=== PATIENT | female | born 1990 ===

== ENCOUNTER 2023-05-04 09:25 | Emergency (ER) | payer OTHER, SELFPAY ==
[2023-05-04 09:33] VITALS: BP 104/50; PULSE 80; RESP 20; TEMP 36.9; O2SAT 98; BMI 17.0
[2023-05-04 10:26] LABS: Influenza A PCR NEGATIVE (Negative); Influenza B PCR NEGATIVE (Negative); Resp Syncy Virus RNA Qual PCR NEGATIVE (Negative); SARS COV2 PCR INHOUSE POSITIVE (Negative)
--- NOTE | 2023-05-04 10:40 | ED.URI ---
HPI - URI/Sore Throat General Chief Complaint: Upper Respiratory Symptoms Stated Complaint: Cough Vomiting Time Seen by Provider: 05/04/23 09:47 Source: patient Mode of arrival: ambulatory Limitations: no limitations History of Present Illness HPI Narrative: 33-year-old female no significant past medical history presents to the ED today with complaint of headache, sore throat, cough, fevers x2 days. Reports T-max of 102.3? at home. Has been taking Advil for this. Cough is productive of yellow-green sputum. Denies known sick contacts. Denies dizziness, vision changes, nasal congestion, shortness of breath, dyspnea, chest pain, nausea/vomiting, diarrhea, constipation. Related Data Previous Rx's Medication Instructions Recorded benzonatate 100 mg capsule 100 mg PO BID PRN cough #14 caps 05/04/23 Allergies Allergy/AdvReac Type Severity Reaction Status Date / Time No Known Allergies Allergy Unknown Unverified 02/05/20 17:23 Review of Systems Review of Systems: Constitutional: +fever, No chills, fatigue, night sweats, weight changes ENT/Mouth: No ear pain, hearing loss, nasal congestion, sinus pain, rhinorrhea, +sore throat Eyes: No eye pain, swelling, redness, vision changes, discharge Cardio: No chest pain, palpitations, [place], orthopnea, peripheral edema Pulm: No SOB, +cough, +sputum, No wheezing, dyspnea, hemoptysis GI: No nausea, vomiting, hematemesis, abdominal pain, diarrhea, constipation, hematochezia, melena : No irregular bleeding, dysuria, frequency, urgency, hesitancy, hematuria, flank pain, urinary flow changes, urinary incontinence or retention MSK: No back pain, neck pain, joint pain, myalgias Skin: No lesions, rashes Neuro: No weakness, numbness, paresthesias, LOC, dizziness, +headache All other systems reviewed and are negative. [facility] Past Medical History Attestation statement: The following information was validated with the patient. Source: old records reviewed and nursing notes reviewed Social History Social History Advance Directives: No Advance Directives Information Provided: No Physical Exam Vital Signs: Vital Signs: Last Vital Signs Temp 98.4 F 05/04/23 09:33 Pulse 80 05/04/23 09:33 Resp 20 05/04/23 09:33 BP 104/50 L 05/04/23 09:33 Pulse Ox 98 05/04/23 09:33 O2 Del Method Room Air 05/04/23 09:33 BMI result Body Mass Index 17.0 Vital signs stable, afebrile. Const: General: cooperative, comfortable, no acute distress, alert and awake Orientation/consciousness: patient oriented x3 Limitations: no limitations HEENT: Other: + posterior oropharynx without erythema or edema. Uvula midline. No tonsillar exudates. controlling secretions and speaking complete sentences. Head: Yes normal to inspection Ears: hearing grossly normal bilaterally, external ears normal, TM's normal bilaterally, EAC's normal, mastoids normal and no periauricular adenopathy General nose exam: Normal external nose present and No nasal discharge present Face and sinus: Yes normal facial exam and Yes sinuses nontender Eyes: General: appearance normal, both eyes and all related structures Conjunctivae: conjunctivae normal Sclerae: sclerae normal Pupils: Equal, round and reactive pupils present Neck: Neck: Yes normal visual inspection, Yes full ROM, Yes no lymphadenopathy and Yes no meningeal signs Resp: Effort & Inspection: normal respiratory effort, able to speak in complete sentences and no respiratory distress Auscultation: clear to auscultation bilaterally and no wheezes Cardio: Rate: regular rate Rhythm: regular rhythm Peripheral pulses: radial pulses present GI: Inspection: Yes normal to inspection Palpation (GI): Soft to palpation and nontender Skin: General skin exam: no rashes or lesions noted Neuro: General: patient oriented x3, gait normal, moves all extremities and no meningeal signs Cranial nerves: Yes Equal, round and reactive pupils present Extrem: General: Yes normal to inspection and Yes full ROM Course Reevaluation(s) Reevaluation #1: 1040-- serology positive for COVID. Negative for flu and RSV. Informed patient of serology results. Advised her to isolate for 5 days and wear mask for 5 days after that. Will send Viridiana Carranza her pharmacy for cough. Patient has remained stable throughout ED visit today, she is afebrile and not hyposix. Discussed strict return precautions. All questions answered at this time. Patient is agreeable with disposition and stable for discharge. Medical Decision Making Medical Decision Making MDM Narrative: 33-year-old female no significant past medical history presents to the ED today with complaint of headache, sore throat, cough, fevers x2 days. Vital signs stable, afebrile, not hypoxic. EACs and TMs WNL bilaterally. Posterior oropharynx without erythema or edema, uvula midline, no tonsillar exudates, controlling secretions and speaking complete sentences. Actively coughing. Lungs CTA bilaterally without wheezes. No rashes. Clinical concern for viral syndrome, bronchitis, headache. Unlikely pneumonia, strep throat, mono, [employer], retropharyngeal abscess, epiglottitis, PE. Plan at this time is serology and re-evaluation. Differential Diagnosis Differential Diagnoses: The differential diagnosis associated with the presentation includes As above. Admission/Observation Not indicated. Lab Data MDM Lab Attestation statement: I reviewed the patient's lab results. as above Labs: Lab Results 05/04/23 Range/Units 09:41 Influenza Type A (PCR) NEGATIVE (Negative) Influenza Type B (PCR) NEGATIVE (Negative) RSV RNA Qual (PCR) NEGATIVE (Negative) SARS-CoV-2 RNA (RT-PCR) POSITIVE A (Negative) External Record Review External record reviewed: Inpatient record Prescription Management I considered prescription management with: Pain Medication and Antiviral Critical Care Time Critical Care Time Critical Care Time: No Discharge Plan Discharge Clinical Impression: COVID Patient Disposition: Home, Self-Care Instructions: COVID-19 (Coronavirus Disease 2019) (ED) Additional Instructions: Today you tested positive for COVID-19.? Take Ibuprofen or Tylenol as needed for fevers or body aches.? Quarantine for 5 days and ensure you wear a mask. After 5 days you should wear a mask for 5 days after that.? Practice social distancing and good hand hygiene. Drink plenty of fluids. Tessalon Perles have been sent to your pharmacy. Take these as needed for cough. Follow-up with your primary care provider. Return to the emergency department with new or worsening symptoms. In case of emergency call 911 You can purchase a pulse oximeter from your local pharmacy or grocery store, and monitor your oxygen saturation if it goes below 94% you should return to the emergency department for further evaluation. Prescriptions: New benzonatate 100 mg capsule 100 mg PO BID PRN (Reason: cough) Qty: 14 0RF Referrals: Physician,Unknown J [Primary Care Provider] - Stand Alone Forms: Work/School Release Discharge Date/Time: 05/04/23 10:46
== END 2023-05-04 10:46 | disposition home or self-care (01) ==
PROVIDERS: Emergency Provider Emergency Medicine Emergency Medical Services
DX: U07.1 COVID-19 (principal); J02.9 Acute pharyngitis, unspecified; R05.9 Cough, unspecified; R11.2 Nausea with vomiting, unspecified; R50.9 Fever, unspecified; R51.9 Headache, unspecified
CPT/HCPCS: 0241U; 99282; 99283

== ENCOUNTER 2023-05-08 09:09 | Emergency (ER) | payer OTHER, SELFPAY ==
[2023-05-08 09:53] VITALS: BP 91/54; PULSE 61; RESP 15; TEMP 36; O2SAT 100; BMI 17.4
--- NOTE | 2023-05-08 10:07 | ED_ITS ---
HPI - General Adult General Chief complaint: General Medical Stated complaint: covid sympton fever cough Time Seen by Provider: 05/08/23 10:06 Source: patient Mode of arrival: ambulatory Limitations: no limitations History of Present Illness HPI narrative: Patient is a 33-year-old female presenting to the emergency department requesting medical clearance to return to work, stating that her job requires a negative COVID test to be able to return to work. Reports symptoms began on Sunday of last week, was seen here on Sunday and tested positive for COVID. States that her symptoms have since fully resolved. Denies fever, cough, shortness of breath. MD complaint: medical clearance Associated symptoms: denies other symptoms Treatments prior to arrival: none Related Data Previous Rx's Medication Instructions Recorded benzonatate 100 mg capsule 100 mg PO BID PRN cough #14 caps 05/04/23 Allergies Allergy/AdvReac Type Severity Reaction Status Date / Time No Known Allergies Allergy Unknown Unverified 02/05/20 17:23 Review of Systems Review of Systems: As per HPI. Yes all other systems are reviewed and are negative Constitutional: Constitutional: Reports as per HPI [facility] Social History Social History Advance Directives: No Advance Directives Information Provided: No Physical Exam ED Vital Signs: Vital Signs - 24 hr 05/08/23 09:53 Temperature 96.8 F Pulse Rate 61 Respiratory Rate 15 Blood Pressure 91/54 L Pulse Oximetry 100 Oxygen Delivery Method Room Air BMI result Body Mass Index 17.4 Vital signs have been reviewed and appear to be correct. Blood pressure low, patient states this is normal for her. Heart rate normal. Respiratory rate normal. Temperature normal. Oxygen saturation normal. Const General: cooperative, healthy appearing and no acute distress Orientation/consciousness: oriented to person, oriented to place, oriented to time and patient oriented x3 Limitations: no limitations HENMT Head: Yes normocephalic and Yes atraumatic Ears: external ears normal General nose exam: Normal external nose present Face and sinus: Yes face symmetric Mouth: oropharynx normal and moist mucous membranes Throat: Yes uvula midline Eyes Pupils: Equal, round and reactive pupils present Neck Neck: Yes normal visual inspection and Yes supple Resp Effort & Inspection: normal respiratory effort and able to speak in complete sentences Auscultation: clear to auscultation bilaterally Cardio Rate: regular rate Rhythm: regular rhythm Heart sounds: S1 normal heart sound present and S2 normal heart sound present GI Palpation (GI): Soft to palpation and nontender Auscultation: normoactive bowel sounds General: Yes no CVA tenderness Back/Spine/Pelvis Back: no CVA tenderness Skin General skin exam: elasticity normal and turgor normal Neuro General: oriented to person, oriented to place, oriented to time, patient oriented x3, moves all extremities, no focal motor deficits and CN's II-XI intact bilaterally Cranial nerves: Yes Equal, round and reactive pupils present Cognition (Neuro): normal cognition Extrem General: Yes full ROM, Yes no pedal edema and Yes no calf tenderness Psych Mental Status: mental status grossly normal Affect: normal affect Thought process: Normal thought process present Medical Decision Making Medical Decision Making MDM Narrative: Patient is a 33-year-old female presenting to the emergency department requesting medical clearance to return to work, stating that her job requires a negative COVID test to be able to return to work. On exam patient is awake, A+Ox3, VS WNL, afebrile, normal neurological exam without focal deficits, physical exam findings as above. Given reported symptoms and physical exam findings, initial differential includes Covid, medical clearance. Patient reswabbed, and found to be negative. Discussed with patient that she should continue to wear a mask for an additional 5 days while around others. Return pr ecautions discussed. Patient verbalized understanding of and agreement with plan. Differential Diagnosis Differential Diagnoses: The differential diagnosis associated with the presentation includes covid, medical clearance Lab Data MDM Lab Attestation statement: I reviewed the patient's lab results. Labs: Lab Results 05/08/23 Range/Units 10:27 COVID-19 ([place]) Negative (Negative) COVID-19 Clin Com See Note External Record Review External record reviewed: Inpatient record, Office record and Outpatient record Discharge Plan Discharge Clinical Impression: COVID Patient Disposition: Home, Self-Care Instructions: COVID-19 (Coronavirus Disease 2019) (ED) Additional Instructions: You were retested for Covid today for clearance to return to work. Your test results was negative. Please continue to wear mask when around others for the next 5 days. Follow-up with your primary care provider. Return to the emergency department if you develop shortness of breath, difficulty breathing, fever, or any other concerning symptoms. Prescriptions: No Action benzonatate 100 mg capsule 100 mg PO BID PRN (Reason: cough) Qty: 14 0RF Stand Alone Forms: Work/School Release
[2023-05-08 10:54] LABS: COVID-19 Test Negative (Negative); IDNOW Serial# BCCEAD1C
== END 2023-05-08 12:03 | disposition home or self-care (01) ==
PROVIDERS: Emergency Provider Emergency Medicine
DX: Z02.79 Encounter for issue of other medical certificate (principal); Z11.52 Encounter for screening for COVID-19; R05.9 Cough, unspecified
CPT/HCPCS: 87635; 99282; 99283

== ENCOUNTER 2023-05-28 15:35 | Emergency (ER) | payer OTHER, SELFPAY | END 2023-05-28 16:13 | disposition left against medical advice (07) | PROVIDERS: Emergency Provider Emergency Medicine | DX: H57.10 Ocular pain, unspecified eye (principal) ==

== ENCOUNTER 2023-06-03 10:26 | Emergency (ER) | payer OTHER, SELFPAY ==
[2023-06-03 11:00] VITALS: BP 97/47; PULSE 76; RESP 16; TEMP 37.1; O2SAT 96; BMI 18.2
--- NOTE | 2023-06-03 11:04 | ED.GENADULT ---
HPI - General Adult General Stated complaint: UTI Related Data Previous Rx's Medication Instructions Recorded benzonatate 100 mg capsule 100 mg PO BID PRN cough #14 caps 05/04/23 Allergies Allergy/AdvReac Type Severity Reaction Status Date / Time No Known Allergies Allergy Unknown Verified 06/03/23 10:59 Course Course Course Narrative: This is an RME: Additional HPI, ROS, PE not included below will be deferred to primary provider. This is a [id number]-female presenting to the emergency department with complaints of dysuria and urgency. She also reports that at times when she has urinary tract infection she also gets a BV infection would like to be tested for both. Plan: Urinalysis, upreg, further ER evaluation needed, likely needs pelvic exam Discharge Plan Discharge Prescriptions: No Action benzonatate 100 mg capsule 100 mg PO BID PRN (Reason: cough) Qty: 14 0RF
[2023-06-03 12:06] LABS: Appearance Urine Hazy; Glucose Urine UA 250 mg/dL (Negative); Leukocyte Esterase Urine Small (1+) (Negative); Nitrite Urine Positive (Negative); PH 6.5 (5.0-9.0); UMIC TRIGGER UACC YES; Urine Blood Trace (Negative); Urine Ketones Trace mg/dL (Negative); Urine Protein 300 (3+) mg/dL (Neg-Trace)
[2023-06-03 12:08] LABS: Color Urine Orange
[2023-06-03 12:09] LABS: UPreg QC Valid YES; Urine Pregnancy NEGATIVE (NEGATIVE)
[2023-06-03 12:37] LABS: Bacteria Urine 4+ (None Seen); Hyaline Casts Urine 0-2 /LPF (0-2); Squamous Epithelial Cell Urine 0-2 /HPF (0-2); UACC Culture Trigger YES
--- NOTE | 2023-06-03 12:42 | ED_ITS ---
HPI - General Adult General Chief complaint: Urogenital-Female Stated complaint: UTI Time Seen by Provider: 06/03/23 12:28 Source: patient Mode of arrival: ambulatory Limitations: no limitations History of Present Illness HPI narrative: 33-year-old female with history of recurrent UTIs, yeast and BV presents to the ED for dysuria and wants to be tested for BV and trich. Patient not concerned for STI patient states yesterday tested negative for chlamydia and gonorrhea. Patient denies any fever, chills, flank pain, nausea, vomiting, back pain, or abdominal pain. Related Data Previous Rx's Medication Instructions Recorded benzonatate 100 mg capsule 100 mg PO BID PRN cough #14 caps 05/04/23 cephalexin 250 mg capsule 250 mg PO Q6H 7 days #28 caps 06/03/23 fluconazole 100 mg tablet 150 mg (1.5 x 100 mg) PO DAILY 1 06/03/23 (Diflucan) day #1 tab metronidazole 0.75 % (37.5 mg/5 1 appful vaginal DAILY 5 days #70 06/03/23 gram) vaginal gel grams Allergies Allergy/AdvReac Type Severity Reaction Status Date / Time No Known Allergies Allergy Unknown Verified 06/03/23 10:59 Review of Systems Review of Systems: dysuria. Yes all other systems are reviewed and are negative [facility] Social History Social History Advance Directives: No Physical Exam ED Vital Signs: Vital Signs - 24 hr 06/03/23 11:00 Temperature 98.7 F Pulse Rate 76 Respiratory Rate 16 Blood Pressure 97/47 L Pulse Oximetry 96 Oxygen Delivery Method Room Air BMI result Body Mass Index 18.2 Const General: cooperative, healthy appearing, comfortable, no acute distress, well developed, alert, awake and Physically active Orientation/consciousness: oriented to person, oriented to place, oriented to time and patient oriented x3 HENMT Head: Yes normal to inspection, Yes No palpable skull fracture present, Yes normocephalic, Yes atraumatic and No abrasion Eyes General: appearance normal, both eyes and all related structures Neck Neck: Yes normal visual inspection, Yes full ROM, Yes no lymphadenopathy, Yes no meningeal signs, Yes trachea midline, Yes supple, No anterior neck swelling and No tender Chest Chest palpation & inspection: normal inspection of the chest and normal palpation of entire chest wall Resp Effort & Inspection: normal respiratory effort and able to speak in complete sentences Auscultation: clear to auscultation bilaterally Cardio Jugular venous distension: no JVD Heart sounds: S1 normal heart sound present and S2 normal heart sound present GI Inspection: Yes normal to inspection and No abdominal wall ecchymosis Palpation (GI): Soft to palpation, not firm, nontender, no guarding and not rigid General: Yes no CVA tenderness Back/Spine/Pelvis Back: no CVA tenderness and No back tenderness Skin General skin exam: no rashes or lesions noted, elasticity normal and turgor normal Neuro General: oriented to person, oriented to place, oriented to time, patient oriented x3, gait normal, tone normal, moves all extremities, Normal light touch and pain sensation, no meningeal signs, no focal motor deficits, CN's II-XI intact bilaterally and normal sensation to monofilament Extrem General: Yes normal to inspection, Yes full ROM and Yes capillary refill normal Psych Appearance: grossly normal, well kempt and not disheveled Medical Decision Making Medical Decision Making [facility] Narrative: 33-year-old female with recurrent UTIs BV and yeast presents to the ED for dysuria. Patient thinks she is having UTI would like to be tested for BV and trich. Patient denies any abdominal pain, nausea, vomiting, flank pain, fever or chills. Initial UA shows UTI. Positive glucose in urine will test POC. Will do pelvic exam with swabs. Patient not concerned for STI and does not want empiric treatment for chlamydia gonorrhea. 1:44pm: PELVIC EXAM NEGATIVE FOR VAGINAL LESIONS OR GREEN YELLOW BROWN VAGINAL DISCHARGE. NEGATIVE FOR CMT. SWAB SENT. PATIENT DISCHARGED WITH ANTIBIOTICS. PATIENT WILL BE TREATED EMPIRICALLY FOR BV AND YEAST. DISCHARGED ANTIBIOTICS Differential Diagnosis Differential Diagnoses: The differential diagnosis associated with the presentation includes ( UTI. VAGINITIS, ) Lab Data [facility] Lab Attestation statement: I reviewed the patient's lab results. Labs: Lab Results 06/03/23 06/03/23 06/03/23 Range/Units 11:57 14:07 14:25 POC Glucose 88 (60-115) mg/dL Urine Color [place] Urine Appearance Hazy Urine pH 6.5 (5.0-9.0) Ur Specific [place] 1.020 (1.005-1.025) Urine Protein 300 (3+) H (Neg-Trace) mg/dL Urine Glucose (UA) 250 H (Negative) mg/dL Urine Ketones Trace (Negative) mg/dL Urine Blood Trace (Negative) Urine Nitrite Positive H (Negative) Ur Leukocyte Esterase Small (1+) H (Negative) Urine RBC 3-5 H (0-2) /HPF Urine WBC 11-20 (0-5) /HPF Ur Squamous Epith Cells 0-2 (0-2) /HPF Urine Bacteria 4+ (None Seen) Hyaline Casts 0-2 (0-2) /LPF Urine Test NEGATIVE (NEGATIVE) Chlam trachomat DNA PCR NOT DETECTED (Not Detect.) N.gonorrhoeae DNA (PCR) NOT DETECTED (Not Detect.) External Record Review External record reviewed: Other ( PRIOR VISITS) Prescription Management I considered prescription management with: Antibiotic Discharge Plan Discharge Clinical Impression: Urinary tract infection, Vaginitis Patient Disposition: Home, Self-Care Instructions: Bacterial Vaginosis (ED), Urinary Tract Infection in Women (ED) Additional Instructions: RETURN TO THE ED IMMEDIATELY FOR ANY ABDOMINAL PAIN, NAUSEA, VOMITING, FLANK PAIN, FEVER, CHILLS, BLOODY URINE, VAGINAL LESIONS, VAGINAL DISCHARGE, OR ANY OTHER CONCERNING SYMPTOMS. PLEASE FOLLOW-UP WITH YOUR PRIMARY CARE PROVIDER AND OBGYN Prescriptions: New cephalexin 250 mg capsule 250 mg PO Q6H 7 Days Qty: 28 0RF fluconazole [Diflucan] 100 mg tablet 150 mg PO DAILY 1 Days Qty: 1 0RF metronidazole 0.75 % (37.5mg/5 gram) gel 1 appful vaginal DAILY 5 Days Qty: 70 0RF No Action benzonatate 100 mg capsule 100 mg PO BID PRN (Reason: cough) Qty: 14 0RF Interventions: ED Discharge Assessment Last Done: 06/03/23 14:50 Discharge Date/Time: 06/03/23 14:51 Print Language: Maldivian
[2023-06-03 14:30] LABS: Glucose, Whole Blood 88 mg/dL (60-115)
[2023-06-03 16:00] LABS: CT PCR NOT DETECTED (Not Detect.); NG PCR NOT DETECTED (Not Detect.)
[2023-06-04 11:58] LABS: BV Int Neg Control Negative (Negative); BV Int Pos Control Positive (Positive)
== END 2023-06-03 14:51 | disposition home or self-care (01) ==
PROVIDERS: Physician Assistant; Physician Assistant Medical; Emergency Provider Emergency Medicine
DX: N39.0 Urinary tract infection, site not specified (principal); N76.0 Acute vaginitis; R30.0 Dysuria; Z72.89 Other problems related to lifestyle
CPT/HCPCS: 0353U; 81001; 81003; 81025; 82947; 87086; 87088; 87186; 87480; 87510; 87660; 99283

== ENCOUNTER 2023-09-09 12:11 | Emergency (ER) | payer OTHER, SELFPAY ==
[2023-09-09 12:34] VITALS: BP 122/66; PULSE 90; RESP 19; TEMP 36.6; O2SAT 98; BMI 18.0
--- NOTE | 2023-09-09 12:38 | ED_ITS ---
HPI - General Adult General Chief complaint: General Medical Stated complaint: Itchiness all over/hemorrhoids Time Seen by Provider: 09/09/23 15:35 Source: patient and family Mode of arrival: ambulatory Limitations: no limitations History of Present Illness HPI narrative: 33 year old female with pmhx significant for constipation presents to the ED today for evaluation of rectal pruritus x2 weeks. She states that 2 weeks ago she spent approximately 3 hours on the toilet attempting to pass a bowel movement. Since this time, reports rectal pain and itching. She has been applying topical Preparation H ointment without relief. Endorses blood on wiping after passing BM 2 wks ago which has since resolved. she has been taking stool softeners and laxatives over the last 2 weeks which has helped her to pass bowel movements regularly. Denies diarrhea, constipation, melena, hematochezia, abdominal pain, nausea or vomiting. Additionally endorses intermittent diffuse body itching over the last few weeks. States she will occasionally notices hives to her skin when she begins to feel itchy. She has not noticed any other rashes. Denies new medications or antibiotics. Denies new detergents/soaps/lotions. Denies tick or insect bites. Denies known sick contacts. Denies known food/ environmental allergies. denies difficulty breathing or throat closing sensation. Related Data Previous Rx's ?Medication ?Instructions ?Recorded benzonatate 100 mg capsule 100 mg PO BID PRN cough #14 caps 05/04/23 cephalexin 250 mg capsule 250 mg PO Q6H 7 days #28 caps 06/03/23 fluconazole 100 mg tablet 150 mg (1.5 x 100 mg) PO DAILY 1 06/03/23 (Diflucan) day #1 tab metronidazole 0.75 % (37.5 mg/5 1 appful vaginal DAILY 5 days #70 06/03/23 gram) vaginal gel grams cetirizine 10 mg tablet (Zyrtec) 10 mg PO DAILY PRN allergy 09/09/23 symptoms #14 tabs diphenhydramine HCl 25 mg tablet 25 mg PO Q8H PRN itching #14 tabs 09/09/23 (Benadryl Allergy) hydrocortisone 2.5 % topical cream 1 appl [place] DAILY PRN itching #30 09/09/23 with perineal applicator grams prednisone 20 mg tablet 40 mg (2 x 20 mg) PO DAILY 5 days 09/09/23 #10 tabs Allergies Allergy/AdvReac Type Severity Reaction Status Date / Time acetaminophen [From Tylenol] Allergy Unknown Verified 09/09/23 12:36 Review of Systems 2 Review of Systems: Constitutional: No fever, chills, fatigue, night sweats, weight changes ENT/Mouth: No ear pain, hearing loss, nasal congestion, sinus pain, rhinorrhea, sore throat Eyes: No eye pain, swelling, redness, vision changes, discharge Cardio: No chest pain, palpitations, [place], orthopnea, peripheral edema Pulm: No SOB, cough, sputum, wheezing, dyspnea, hemoptysis GI: No nausea, vomiting, hematemesis, abdominal pain, diarrhea, constipation, hematochezia, melena : No irregular bleeding, dysuria, frequency, urgency, hesitancy, hematuria, flank pain, urinary flow changes, urinary incontinence or retention, +rectal pain/ itching MSK: No back pain, neck pain, joint pain, myalgias Skin: No lesions, rashes, +pruritus Neuro: No weakness, numbness, paresthesias, LOC, dizziness, headache Psych: No anxiety/panic, depression, SI/HI, AH/VH All other systems reviewed and are negative. [facility] Past Medical History Attestation statement: The following information was validated with the patient. Source: old records reviewed and nursing notes reviewed Social History Social History Advance Directives: No Advance Directives Information Provided: No Physical Exam ED Vital Signs: Vital Signs - 24 hr 09/09/23 12:34 09/09/23 16:25 Temperature 98 F 98 F Pulse Rate 90 90 Respiratory Rate 19 19 Blood Pressure 122/66 122/66 Pulse Oximetry 98 98 Oxygen Delivery Method Room Air Room Air BMI result Body Mass Index 18.0 Const Orientation/consciousness: patient oriented x3 HENMT Head: Yes normal to inspection, Yes No palpable skull fracture present, Yes normocephalic and Yes atraumatic Mouth: Normal oral and palatal mucosa present Throat: Yes posterior oropharynx normal Eyes General: appearance normal, both eyes and all related structures Neck Neck: Yes normal visual inspection, Yes full ROM, Yes no lymphadenopathy and Yes no meningeal signs Chest Chest palpation & inspection: normal inspection of the chest Resp Effort & Inspection: normal respiratory effort, able to speak in complete sentences and no stridor Auscultation: clear to auscultation bilaterally Cardio Rate: regular rate Rhythm: regular rhythm GI Other: + abdomen soft, ND/NT, no rebound tenderness or guarding. normoactive bs x4. Rectal exam performed with Lisa head start teacher present in room to tailor garment fitter. + there are no perianal lesions, masses. Normal sphincter tone. there is a palpable internal hemorrhoid noted to posterior aspect of anus. no active bleeding. ttp. no palpable stool within rectal vault. General: Yes no CVA tenderness Back/Spine/Pelvis Back: no CVA tenderness Skin Other: + skin warm, dry, intact. no rashes/ hives noted. no lesions noted to mucous membranes, webbed spaces, or palms/soles. no sloughing of skin. no dermatomal pattern. no target lesions or insect/ tick bites. Neuro General: patient oriented x3, gait normal and no meningeal signs Extrem General: Yes normal to inspection Course Course Course Narrative: RME: 33 year year old female presents to ED for generalized pruritus without any obvious rash. Patient states only dennis wells after she itches. Patient's secondary complaint is rectum itchiness. Reevaluation(s) Reevaluation #1: 1620-- cbc without leukocytosis or left shift. no anemia. h&h stable. eosinophills wnl. chemistry without acute electrolyte abnormality requiring intervention. normal renal and liver function. Physical exam consistent with internal hemorrhoid. will send hydrocortisone cream to pharmacy for symptomatic relief. advised to follow up with GI regarding further management. No physical evidence of acute allergic reaction or anaphylaxis. she is currently asymptomatic. patient received pepcid, benadryl, and decadron in ED. will send her home with zyrtec, benadryl and prednisone. advised to follow up with outboard motor inspector or nuclear reactor engineer. referrals provided. Patient has remained stable throughout ED visit today. Discussed worrisome signs and symptoms and when to return to the ED. All questions answered at this time. Patient is agreeable with disposition and stable for discharge. Medications Administered Discontinued Medications Generic Name Dose Route Start Last Admin Trade Name Freq PRN Reason Stop Dose Admin Dexamethasone Sodium Phosphate 10 mg 09/09/23 15:53 09/09/23 16:10 Dexamethasone Sod Phosphate 10 Mg/Ml Vial IVPUSH 09/09/23 15:54 10 mg ONCE ONE Administration Diphenhydramine HCl 50 mg 09/09/23 15:53 09/09/23 16:10 Diphenhydramine Hcl 25 Mg Capsule PO 09/09/23 15:54 50 mg ONCE ONE Administration Famotidine 20 mg 09/09/23 15:53 09/09/23 16:10 Famotidine 20 Mg Tablet PO 09/09/23 15:54 20 mg ONCE ONE Administration Medical Decision Making Medical Decision Making [facility] Narrative: 33 year old female with pmhx significant for constipation presents to the ED today for evaluation of rectal pruritus x2 weeks. vital signs are stable. she is nontoxic appearing and in no acute distress. skin warm, dry, intact. no rashes/ hives noted. no lesions noted to mucous membranes, webbed spaces, or palms/soles. no sloughing of skin. no target lesions or insect/ tick bites. no dermatomal pattern. Lungs are cta b/l. Airway patent. On BIJU, there are no perianal lesions, masses. Normal sphincter tone. there is a palpable internal hemorrhoid noted to posterior aspect of anus. no active bleeding. ttp. no palpable stool within rectal vault. abd soft, nd/nt no rebound or guarding. Differential diagnosis includes allergic reaction, contact dermatitis, seasonal allergies, external hemorrhoid, internal hemorrhoid. Unlikely scabies, insect bite, lyme, tick bourne disease, anaphylaxsis, sjs/ ten, medication reaction, GI bleed, fissure. Labs obtained prior to my assumption of care. Plan for medication and discharge. Differential Diagnosis Differential Diagnoses: The differential diagnosis associated with the presentation includes as above. Admission/Observation not indicated. Lab Data [facility] Lab Attestation statement: I reviewed the patient's lab results. as above. 09/09/23 14:23 09/09/23 14:23 Labs: Lab Results 09/09/23 Range/Units 14:23 WBC 5.0 (4.8-10.8) X10*3/uL RBC 4.23 (4.20-5.50) X10*6/uL Hgb 13.0 (12.0-16.0) g/dl Hct 39.3 (37.0-47.0) % MCV 92.9 (80.0-98.0) fL MCH 30.7 (27.0-33.0) pg MCHC 33.1 (31.0-35.0) g/dl RDW 13.2 (11.0-16.0) % Plt Count 214 (160-400) X10*3/uL MPV 10.4 (9.4-12.3) fL Immature Gran % (Auto) 0.2 (0.0-0.4) % Neut % (Auto) 55.0 (45-73) % Lymph % (Auto) 31.9 (20-40) % [place] % (Auto) 10.3 (2-11) % Eos % (Auto) 1.8 (0-4) % Baso % (Auto) 0.8 (0-2) % Lymph # (Auto) 1.6 (1.2-4.9) X10*3/uL [place] # (Auto) 0.5 (0.1-1.2) X10*3/uL Eos # (Auto) 0.1 (0.0-0.4) X10*3/uL Baso # (Auto) 0.0 (0.0-0.2) X10*3/uL Abs Immat Gran (auto) 0.01 (0.00-0.03) X10*3/uL Absolute Neuts (auto) 2.8 (2.0-8.3) x10*3/uL Absolute Nucleated RBC 0.000 (0.0-0.012) X10*3/uL Nucleated RBC % (auto) 0.0 (0.0-0.2) /100WBC Sodium 137 (135-145) mmol/L Potassium 4.2 (3.3-5.1) mmol/L Chloride 106 (96-108) mmol/L Carbon Dioxide 25 (22-29) mmol/L Anion Gap 10 L (12-20) BUN 8 L (9-16) mg/dL Creatinine 0.71 (0.5-1.4) mg/dL Estim Creat Clear Calc 91.0 Estimated GFR > 60 Random Glucose 84 (60-115) mg/dL Calcium 9.2 (8.4-10.2) mg/dL Total Bilirubin 0.4 (0.0-1.0) mg/dL AST 13 (5-31) U/L ALT 7 (0-31) U/L Alkaline Phosphatase 45 (39-117) U/L Total Protein 7.5 (6.5-8.0) g/dL Albumin 4.0 (3.5-5.0) g/dL Lipase 22 (8-78) U/L Independent Historian Clinical information obtained from an independent historian. History obtained from or confirmed by: Spouse Prescription Management I considered prescription management with: Other (benadryl, zyrtec, prednisone, lido ointment) Social Determinants Patient?s care significantly limited by Social Determinants of Health including: Other Social Determinant of Health Discharge Plan Discharge Clinical Impression: Internal hemorrhage, Anal pruritus Patient Disposition: Home, Self-Care Instructions: Hemorrhoids (ED), Sitz Bath (DC), Hemorrhoidectomy (DC) Additional Instructions: Avoid constipation/straining Continue laxatives and stool softeners for constipation. Hydrocortizone ointment has been sent to your pharmacy. Apply this up to twice daily for anal itching. Do not use this for more than one week as this can cause the skin to thin. Utilize sitz baths to help with discomfort. See instructions attached to this paper. Follow-up with electric fork operator if symptoms do not improve. A referral has been provided to you. Return with new or worsening symptoms. In addition, medications have been sent to your pharmacy for overall body itching. Prednisone is a steroid that has been sent to your pharmacy. Take this as directed over the next 5 days. Take this in conjunction with Benadryl 25 mg every 8 hours for itching. Take these in conjunction with Zyrtec 10 mg daily. You have been provided with a referral to an outboard motor inspector along with a nuclear reactor engineer. You may call them to establish care. They will not call you. Return with new or worsening symptoms. Prescriptions: New prednisone 20 mg tablet 40 mg PO DAILY 5 Days Qty: 10 0RF cetirizine [Zyrtec] 10 mg tablet 10 mg PO DAILY PRN (Reason: allergy symptoms) Qty: 14 0RF diphenhydramine HCl [Benadryl Allergy] 25 mg tablet 25 mg PO Q8H PRN (Reason: itching) Qty: 14 0RF Rx Instructions: may repeat once in 30-60 minutes if not effective hydrocortisone 2.5 % cream with perineal applicator 1 appl [place] DAILY PRN (Reason: itching) Qty: 30 0RF No Action benzonatate 100 mg capsule 100 mg PO BID PRN (Reason: cough) Qty: 14 0RF cephalexin 250 mg capsule 250 mg PO Q6H 7 Days Qty: 28 0RF fluconazole [Diflucan] 100 mg tablet 150 mg PO DAILY 1 Days Qty: 1 0RF metronidazole 0.75 % (37.5mg/5 gram) gel 1 appful vaginal DAILY 5 Days Qty: 70 0RF Referrals: [facility] [Provider Group] Ian Tinsley MD [Physician] - Bibi Davis PA-C [Physician Validation Specialist] - Interventions: ED Discharge Assessment Last Done: 09/09/23 16:25 Discharge Date/Time: 09/09/23 16:25 Print Language: [place]
[2023-09-09 14:26] LABS: MANUAL DIFF FLAG NO
[2023-09-09 14:27] LABS: Basophils Percent Auto 0.8 % (0-2); Eosinophils Absolute Auto 0.1 X10*3/uL (0.0-0.4); Eosinophils Percent Auto 1.8 % (0-4); Hematocrit 39.3 % (37.0-47.0); Imm Gran Abs Auto 0.01 X10*3/uL (0.00-0.03); Imm Gran Pct Auto 0.2 % (0.0-0.4); Lymphocytes Absolute Auto 1.6 X10*3/uL (1.2-4.9); Lymphocytes Percent Auto 31.9 % (20-40); Mean Corpuscular HGB Conc 33.1 g/dl (31.0-35.0); Mean Corpuscular Hemoglobin 30.7 pg (27.0-33.0); Mean Corpuscular Volume 92.9 fL (80.0-98.0); Mean Platelet Volume 10.4 fL (9.4-12.3); Monocytes Absolute Auto 0.5 X10*3/uL (0.1-1.2); Monocytes Percent Auto 10.3 % (2-11); Neutrophils Absolute Auto 2.8 x10*3/uL (2.0-8.3); Platelet Count 214 X10*3/uL (160-400); Red Blood Count 4.23 X10*6/uL (4.20-5.50); Red Cell Distribution Width 13.2 % (11.0-16.0)
[2023-09-09 15:04] LABS: Alanine Aminotransferase 7 U/L (0-31); Alkaline Phosphatase 45 U/L (39-117); Anion Gap 10 (12-20); Aspartate Amino Transferase 13 U/L (5-31); Bilirubin Total 0.4 mg/dL (0.0-1.0); Blood Urea Nitrogen 8 mg/dL (9-16); Calcium 9.2 mg/dL (8.4-10.2); Carbon Dioxide 25 mmol/L (22-29); Chloride 106 mmol/L (96-108); Estimated Glomerular Filt Rate > 60; Glucose Random 84 mg/dL (60-115); Lipase 22 U/L (8-78); Potassium 4.2 mmol/L (3.3-5.1); Sodium 137 mmol/L (135-145); Total Protein 7.5 g/dL (6.5-8.0)
[2023-09-09] MEDS: dexAMETHasone sod phosphate 10 MG/ML VIAL IVPUSH (16:10)
[2023-09-09] MEDS: Famotidine 20 MG TABLET PO (16:10)
[2023-09-09] MEDS: diphenhydrAMINE HCL 25 MG CAPSULE 50 MG PO (16:10)
[2023-09-09 16:25] VITALS: BP 122/66; PULSE 90; RESP 19; TEMP 36.6; O2SAT 98
== END 2023-09-09 16:25 | disposition home or self-care (01) ==
PROVIDERS: Physician Assistant; Emergency Provider Emergency Medicine
DX: K64.8 Other hemorrhoids (principal); L29.0 Pruritus ani; Z79.899 Other long term (current) drug therapy
CPT/HCPCS: 36415; 80053; 83690; 85025; 99282; 99283; J1100

== ENCOUNTER 2024-03-23 10:28 | Emergency (ER) | payer OTHER, SELFPAY ==
--- NOTE | ~2024-03-23 | CT_ITS ---
EXAMINATION: CT ABDOMEN AND PELVIS WITH CONTRAST CLINICAL INFORMATION: RLQ pain R/O appendicitis COMPARISON: None available. TECHNIQUE: Multidetector volumetric images were obtained from the superior aspect of the liver through the pubic symphysis following administration 85 mL of Omnipaque 350 intravenous contrast. Sagittal and coronal reformatted images were obtained on the technologist's workstation. Oral contrast: No This CT examination was performed using dose optimization techniques as appropriate, variously including the following: *Automated exposure control *Adjustment of mA and/or kV according to patient size (this includes techniques or standardized protocols for targeted exams where dose is matched to indication/reason for exam; i.e. extremities or head) *Use of iterative reconstruction technique DLP: 355 mGy-cm FINDINGS: LUNG BASES: The visualized lung bases are unremarkable. LIVER, GALLBLADDER, AND BILIARY TREE: The liver is normal in size, shape, and attenuation. No focal hepatic lesion or biliary ductal dilatation is present. The gallbladder is unremarkable with no evidence of radiopaque gallstones, gallbladder wall thickening, or obvious pericholecystic inflammatory changes. PANCREAS: Unremarkable. SPLEEN: Unremarkable. ADRENAL GLANDS: Unremarkable. KIDNEYS AND URETERS: The kidneys are normal in size, shape, and attenuation. No hydronephrosis, hydroureter, or calculi seen. No perinephric stranding. BLADDER: Circumferential wall thickening. GASTROINTESTINAL TRACT: The small and large bowel are unremarkable. The appendix is unremarkable. ABDOMINAL WALL: No significant hernia is appreciated. LYMPH NODES: Normal. VASCULAR: Unremarkable. PELVIC VISCERA: Heterogeneous uterus with hypodensity and stranding around the proximal uterus and cervix. The fundus appears hyperdense and heterogeneous. There is a 7 mm linear hypodensity in the anterior uterine wall that may represent a prior scar. OSSEOUS STRUCTURES: Unremarkable. CT/CT abdomen pelvis w IV con IMPRESSION: 1. Heterogeneous uterus with hypodensity and stranding around the proximal uterus and cervix. The fundus appears hyperdense and heterogeneous. Findings are concerning for uterine infection. Recommend further evaluation with pelvic ultrasound. 2. 7 mm linear hypodensity in the anterior uterine wall that is contiguous with the endometrial lining may represent a prior scar. Cannot exclude dehiscence. 3. Circumferential wall thickening of the urinary bladder, which may be due to underdistention or cystitis. Recommend correlation with urinalysis. Fleischner guidelines were followed. Electronically signed by: Tamie Ng MD 03/23/2024 02:57 PM [facility]
[2024-03-23 10:33] VITALS: BP 96/64; PULSE 75; RESP 16; TEMP 36.8; O2SAT 98; BMI 19.1
[2024-03-23 11:01] LABS: MANUAL DIFF FLAG NO
[2024-03-23 11:03] LABS: Basophils Percent Auto 0.4 % (0-2); Eosinophils Absolute Auto 0.1 X10*3/uL (0.0-0.4); Eosinophils Percent Auto 0.7 % (0-4); Hematocrit 39.2 % (37.0-47.0); Hemoglobin 13.1 g/dl (12.0-16.0); Imm Gran Abs Auto 0.01 X10*3/uL (0.00-0.03); Imm Gran Pct Auto 0.1 % (0.0-0.4); Lymphocytes Absolute Auto 1.3 X10*3/uL (1.2-4.9); Lymphocytes Percent Auto 19.8 % (20-40); Mean Corpuscular HGB Conc 33.4 g/dl (31.0-35.0); Mean Corpuscular Hemoglobin 31.3 pg (27.0-33.0); Mean Corpuscular Volume 93.8 fL (80.0-98.0); Mean Platelet Volume 10.1 fL (9.4-12.3); Monocytes Absolute Auto 0.5 X10*3/uL (0.1-1.2); Monocytes Percent Auto 7.3 % (2-11); Neutrophils Absolute Auto 4.8 x10*3/uL (2.0-8.3); Neutrophils Percent Auto 71.7 % (45-73); Platelet Count 246 X10*3/uL (160-400); Red Blood Count 4.18 X10*6/uL (4.20-5.50); White Blood Count 6.7 X10*3/uL (4.8-10.8)
[2024-03-23 11:04] LABS: Appearance Urine Turbid; Color Urine Yellow; Glucose Urine UA Negative (Negative); Leukocyte Esterase Urine Negative (Negative); Nitrite Urine Negative (Negative); Specific Gravity - Urine 1.015 (1.005-1.025); Urine Blood Negative (Negative); Urine Ketones Negative (Negative); Urine Protein Negative (Neg-Trace)
[2024-03-23 11:05] LABS: UPreg QC Valid YES; Urine Pregnancy NEGATIVE (NEGATIVE)
[2024-03-23 11:38] LABS: Anion Gap 11 (12-20); Blood Urea Nitrogen 7 mg/dL (9-16); Calcium 9.7 mg/dL (8.4-10.2); Carbon Dioxide 28 mmol/L (22-29); Chloride 104 mmol/L (96-108); Creatinine Clr Calc Pharmacy 86.8; Estimated Glomerular Filt Rate > 60; Glucose Random 73 mg/dL (60-115); Potassium 3.8 mmol/L (3.3-5.1); Sodium 139 mmol/L (135-145)
--- NOTE | 2024-03-23 11:39 | PC.NURSE ---
patient states pain is still there but dull and LLQ to back. Patient reports tubal ligation in 2017 after daughter was born. still sexually active and periods are abnormal . most recent last week just ending few days ago. patient denies any nausea, vomiting, diarrhea, fevers or chills. Patient aaxo3 speaking clear full sentences. patient reports abdominal pain worse upon palpation of LLQ. denies burning, itching, or pain with urination. patient reports severe pain right pelvic area when she sneezed this morning.
--- NOTE | 2024-03-23 12:04 | ED_ITS ---
HPI - Abdominal Pain General Chief Complaint: Abdominal Pain Stated Complaint: Pain pelvic, lower back Time Seen by Provider: 03/23/24 12:03 Source: patient Mode of arrival: ambulatory Limitations: no limitations History of Present Illness ED Provider: Dr. Benson Dunne HPI narrative: 33-year-old female who presents emergency department for evaluation of lower abdominal/pelvic pain x2 days. The patient states that the pain is more on her right lower quadrant area than her left. The pain came on gradually. The pain has been intermittent and a dull pain which is 5/10 at its worst. This morning the patient's pain became more severe so she came to the emergency department. She also states that today she noticed a vaginal discharge which she states has thick and gooey. The patient states that her last menstrual period was 03/09/2024 and lasted for 7-8 days. This is a 1st episode of this type of pain. The patient states she has had a change in her menses with increased vaginal bleeding in the beginning of her cycle. She did have a pelvic ultrasound which she was told his abnormal but she does the abnormal finding and she was scheduled to follow-up with a another provider. Related Data Previous Rx's ?Medication ?Instructions ?Recorded benzonatate 100 mg capsule 100 mg PO BID PRN cough #14 caps 05/04/23 cephalexin 250 mg capsule 250 mg PO Q6H 7 days #28 caps 06/03/23 fluconazole 100 mg tablet 150 mg (1.5 x 100 mg) PO DAILY 1 06/03/23 (Diflucan) day #1 tab metronidazole 0.75 % (37.5 mg/5 1 appful vaginal DAILY 5 days #70 06/03/23 gram) vaginal gel grams cetirizine 10 mg tablet (Zyrtec) 10 mg PO DAILY PRN allergy 09/09/23 symptoms #14 tabs diphenhydramine HCl 25 mg tablet 25 mg PO Q8H PRN itching #14 tabs 09/09/23 (Benadryl Allergy) hydrocortisone 2.5 % topical cream 1 appl [place] DAILY PRN itching #30 09/09/23 with perineal applicator grams prednisone 20 mg tablet 40 mg (2 x 20 mg) PO DAILY 5 days 09/09/23 #10 tabs doxycycline hyclate 100 mg tablet 100 mg PO Q12H 14 days #28 tabs 03/23/24 metronidazole 500 mg tablet 500 mg PO BID 10 days #20 tabs 03/23/24 ondansetron 4 mg disintegrating 4 mg PO Q6-8H PRN nausea and 03/23/24 tablet vomiting #14 tabs Allergies Allergy/AdvReac Type Severity Reaction Status Date / Time acetaminophen [From Tylenol] Allergy Unknown Verified 03/23/24 10:36 Review of Systems Review of Systems Yes all other systems are reviewed and are negative [facility] Past Medical History [facility] Narrative: Social history: She denies tobacco, alcohol and drug use Social History Social History Advance Directives: No Advance Directives Information Provided: Yes Do you have a plan to hurt others: No Plan Physical Exam ED Vital Signs: Vital Signs - 24 hr 03/23/24 10:33 03/23/24 13:36 Temperature 98.3 F 97.7 F Pulse Rate 75 76 Respiratory Rate 16 18 Blood Pressure 96/64 111/79 Pulse Oximetry 98 100 Oxygen Delivery Method Room Air Room Air BMI result Body Mass Index 19.1 Medical Decision Making Lab Data 03/23/24 10:57 03/23/24 10:57 Labs: Lab Results 03/23/24 03/23/24 Range/Units 10:54 10:57 WBC 6.7 (4.8-10.8) X10*3/uL RBC 4.18 L (4.20-5.50) X10*6/uL Hgb 13.1 (12.0-16.0) g/dl Hct 39.2 (37.0-47.0) % MCV 93.8 (80.0-98.0) fL MCH 31.3 (27.0-33.0) pg MCHC 33.4 (31.0-35.0) g/dl RDW 13.0 (11.0-16.0) % Plt Count 246 (160-400) X10*3/uL MPV 10.1 (9.4-12.3) fL Immature Gran % (Auto) 0.1 (0.0-0.4) % Neut % (Auto) 71.7 (45-73) % Lymph % (Auto) 19.8 L (20-40) % [place] % (Auto) 7.3 (2-11) % Eos % (Auto) 0.7 (0-4) % Baso % (Auto) 0.4 (0-2) % Lymph # (Auto) 1.3 (1.2-4.9) X10*3/uL [place] # (Auto) 0.5 (0.1-1.2) X10*3/uL Eos # (Auto) 0.1 (0.0-0.4) X10*3/uL Baso # (Auto) 0.0 (0.0-0.2) X10*3/uL Abs Immat Gran (auto) 0.01 (0.00-0.03) X10*3/uL Absolute Neuts (auto) 4.8 (2.0-8.3) x10*3/uL Absolute Nucleated RBC 0.000 (0.0-0.012) X10*3/uL Nucleated RBC % (auto) 0.0 (0.0-0.2) /100WBC Sodium 139 (135-145) mmol/L Potassium 3.8 (3.3-5.1) mmol/L Chloride 104 (96-108) mmol/L Carbon Dioxide 28 (22-29) mmol/L Anion Gap 11 L (12-20) BUN 7 L (9-16) mg/dL Creatinine 0.79 (0.5-1.4) mg/dL Estim Creat Clear Calc 86.8 Estimated GFR > 60 Random Glucose 73 (60-115) mg/dL Calcium 9.7 (8.4-10.2) mg/dL Urine Color Yellow Urine Appearance Turbid Urine pH 8.0 (5.0-9.0) Ur Specific [place] 1.015 (1.005-1.025) Urine Protein Negative (Neg-Trace) mg/dL Urine Glucose (UA) Negative (Negative) mg/dL Urine Ketones Negative (Negative) mg/dL Urine Blood Negative (Negative) Urine Nitrite Negative (Negative) Ur Leukocyte Esterase Negative (Negative) Urine Test NEGATIVE (NEGATIVE) Radiology Impression Discussion of test interpretation with radiology: I have reviewed the radiologist's reading. Radiologist Impression: CT abdomen pelvis w IV con IMPRESSION: 1. Heterogeneous uterus with hypodensity and stranding around the proximal uterus and cervix. The fundus appears hyperdense and heterogeneous. Findings are concerning for uterine infection. Recommend further evaluation with pelvic ultrasound. 2. 7 mm linear hypodensity in the anterior uterine wall that is contiguous with the endometrial lining may represent a prior scar. Cannot exclude dehiscence. 3. Circumferential wall thickening of the urinary bladder, which may be due to underdistention or cystitis. Recommend correlation with urinalysis. Fleischner guidelines were followed. Electronically signed by: Tamie Ng MD 03/23/2024 02:57 PM [facility] Medications Administered Discontinued Medications Generic Name Dose Route Start Last Admin Trade Name Freq PRN Reason Stop Dose Admin Iohexol 100 ml 03/23/24 14:18 03/23/24 14:19 Iohexol 350 Mg/Ml 100 Ml Infus..Btl IV 03/23/24 14:19 85 ml ONCE ONE Administration Ketorolac Tromethamine 15 mg 03/23/24 12:51 03/23/24 13:20 Ketorolac Tromethamine 15 Mg/Ml Vial IVPUSH 03/23/24 12:52 15 mg ONCE STA Administration Ondansetron HCl 4 mg 03/23/24 12:51 03/23/24 13:21 Ondansetron Hcl 4 Mg/2 Ml Vial IVPUSH 03/23/24 12:52 4 mg ONCE ONE Administration Discharge Plan Discharge Clinical Impression: Acute PID (pelvic inflammatory disease) Patient Disposition: Home, Self-Care Additional Instructions: Your blood work was unremarkable Your pelvic exam did reveal tenderness with palpation of your uterus The CT scan of your abdomen pelvis with IV contrast is consistent with an infection of your uterus. Your presentation and physical findings are consistent with pelvic inflammatory disease (PID). Approximately 30% of the time, pelvic inflammatory disease is caused by sexually transmitted diseases such as Trichomonas, gonorrhea or chlamydia. Approximately 70% of the time, pelvic inflammatory disease is caused by abnormal bacteria (anaerobic bacteria) in your vagina that can cause an infection ? Medications You received ceftriaxone 500 mg intramuscularly here in the emergency department Take doxycycline 100 mg, 1 pill twice a day for 14 days. Take metronidazole 500 mg, 1 pill twice a day for 14 days. These 3 antibiotics treat sexually transmitted diseases such as gonorrhea, chlamydia and Trichomonas as well as anaerobic bacteria that can cause pelvic inflammatory disease. Take ibuprofen 400 mg pills, 1 pills every 6 hours as needed for pain. For pain not relieved by ibuprofen take morphine 15 mg pills, 1 pill every 6 hours as needed for pain. This medication will make you sleepy, do not drive or work while taking this medication. Morphine is a narcotic medication and can be addicting. If you are concerned about addiction you can ask the pharmacist for less pills or do not get this prescription filled. Take Zofran ODT 4 mg pills, 1 pill dissolved in your mouth every 8 hours as needed for nausea and vomiting. Follow-Up Follow-up with your gynecology in ?10-14 days. Pending laboratory tests: The doctor that follows up ?will need to review the following results with you: Bacterial vaginosis testing Gonorrhea and chlamydia (cervical swab) Trichomonas testing You can also check these results on the patient portal. Return precautions: Please return to the emergency department if your symptoms get worse if your pain does not go away in 24-48 hours or if you develop any symptoms that are concerning to you. Prescriptions: New metronidazole 500 mg tablet 500 mg PO BID 10 Days Qty: 20 0RF ondansetron 4 mg tablet,disintegrating 4 mg PO Q6-8H PRN (Reason: nausea and vomiting) Qty: 14 0RF doxycycline hyclate 100 mg tablet 100 mg PO Q12H 14 Days Qty: 28 0RF No Action benzonatate 100 mg capsule 100 mg PO BID PRN (Reason: cough) Qty: 14 0RF cephalexin 250 mg capsule 250 mg PO Q6H 7 Days Qty: 28 0RF fluconazole [Diflucan] 100 mg tablet 150 mg PO DAILY 1 Days Qty: 1 0RF metronidazole 0.75 % (37.5mg/5 gram) gel 1 appful vaginal DAILY 5 Days Qty: 70 0RF prednisone 20 mg tablet 40 mg PO DAILY 5 Days Qty: 10 0RF cetirizine [Zyrtec] 10 mg tablet 10 mg PO DAILY PRN (Reason: allergy symptoms) Qty: 14 0RF diphenhydramine HCl [Benadryl Allergy] 25 mg tablet 25 mg PO Q8H PRN (Reason: itching) Qty: 14 0RF Rx Instructions: may repeat once in 30-60 minutes if not effective hydrocortisone 2.5 % cream with perineal applicator 1 appl [place] DAILY PRN (Reason: itching) Qty: 30 0RF Print Language: Ma[place]
[2024-03-23] MEDS: Ketorolac Tromethamine 15 MG/ML VIAL IVPUSH (13:20)
[2024-03-23] MEDS: ondansetron HCL 4 MG/2 ML VIAL IVPUSH (13:21)
[2024-03-23 13:36] VITALS: BP 111/79; PULSE 76; RESP 18; TEMP 36.5; O2SAT 100
[2024-03-23] MEDS: iohexoL 350 MG/ML 100 ML INFUS..BTL IV (14:19)
[2024-03-23 15:17] LABS: Bacterial Vaginosis PCR NEGATIVE (Negative); Candida Group PCR NOT DETECTED (Not Detect); Candida glab krusei PCR NOT DETECTED (Not Detect); Trichomonas vaginalis PCR NOT DETECTED (Not Detect)
[2024-03-23] MEDS: Doxycycline Monohydrate 100 MG CAPSULE PO (15:36)
[2024-03-23] MEDS: metroNIDAZOLE 500 MG TABLET PO (15:36)
[2024-03-23] MEDS: cefTRIAXone sodium 500 MG, Lidocaine HCl 1 % MPF 1 ML IM (15:36)
[2024-03-23 15:49] LABS: CT PCR NOT DETECTED (Not Detect.); NG PCR NOT DETECTED (Not Detect.)
[2024-03-23 16:03] VITALS: BP 103/62; PULSE 66; RESP 18; TEMP 36.5; O2SAT 100
[2024-03-23 16:05] VITALS: BP 103/62; PULSE 66; RESP 18; TEMP 36.5; O2SAT 100
== END 2024-03-23 16:06 | disposition home or self-care (01) ==
PROVIDERS: Emergency Provider Emergency Medicine Emergency Medical Services; PCP Internal Medicine
DX: N73.9 Female pelvic inflammatory disease, unspecified (principal); R10.2 Pelvic and perineal pain; M54.50 Low back pain, unspecified; N89.8 Other specified noninflammatory disorders of vagina; Z79.899 Other long term (current) drug therapy
CPT/HCPCS: 0352U; 36415; 74177; 80048; 81003; 81025; 85025; 87491; 87591; 96372; 96374; 96375; 99284; J0696; J1885; J2003; J2405; Q9967

== ENCOUNTER 2024-04-04 21:12 | Emergency (ER) | payer OTHER, SELFPAY ==
--- NOTE | ~2024-04-04 | XR_ITS ---
EXAMINATION: XR ABDOMEN KUB CLINICAL INDICATION: Abdominal pain. COMPARISON: CT abdomen/pelvis 03/23/2024. TECHNIQUE: AP view of the abdomen. FINDINGS: Diffuse dilatation of the small and large bowel. No acute osseous findings. No unexpected radiopaque foreign bodies. XR/XR KUB IMPRESSION: Abnormal dilatation of the small and large bowel, increased compared to 03/23/2024. Indeterminate could be related with ileus or less likely distal bowel obstruction. Further evaluation with CT abdomen/pelvis as clinically warranted. Electronically signed by: Linn Gill MD 04/04/2024 11:04 PM [facility]
[2024-04-04 21:14] VITALS: BP 107/73; PULSE 80; RESP 20; TEMP 36.3; O2SAT 100; BMI 18.0
[2024-04-04 22:01] LABS: MANUAL DIFF FLAG NO
[2024-04-04 22:02] LABS: Basophils Percent Auto 0.4 % (0-2); Eosinophils Percent Auto 0.4 % (0-4); Hematocrit 39.8 % (37.0-47.0); Hemoglobin 13.6 g/dl (12.0-16.0); Imm Gran Abs Auto 0.03 X10*3/uL (0.00-0.03); Imm Gran Pct Auto 0.3 % (0.0-0.4); Lymphocytes Absolute Auto 1.3 X10*3/uL (1.2-4.9); Lymphocytes Percent Auto 13.4 % (20-40); Mean Corpuscular HGB Conc 34.2 g/dl (31.0-35.0); Mean Corpuscular Hemoglobin 31.2 pg (27.0-33.0); Mean Corpuscular Volume 91.3 fL (80.0-98.0); Mean Platelet Volume 10.2 fL (9.4-12.3); Monocytes Absolute Auto 0.7 X10*3/uL (0.1-1.2); Monocytes Percent Auto 6.7 % (2-11); Neutrophils Absolute Auto 7.8 x10*3/uL (2.0-8.3); Neutrophils Percent Auto 78.8 % (45-73); Platelet Count 271 X10*3/uL (160-400); Red Blood Count 4.36 X10*6/uL (4.20-5.50); Red Cell Distribution Width 12.9 % (11.0-16.0)
[2024-04-04 22:15] LABS: Alanine Aminotransferase 14 U/L (0-31); Albumin Level 4.3 g/dL (3.5-5.0); Alkaline Phosphatase 52 U/L (39-117); Anion Gap 10 (12-20); Aspartate Amino Transferase 21 U/L (5-31); Bilirubin Total 0.7 mg/dL (0.0-1.0); Blood Urea Nitrogen 7 mg/dL (9-16); Carbon Dioxide 23 mmol/L (22-29); Chloride 105 mmol/L (96-108); Creatinine Clr Calc Pharmacy 99.4; Estimated Glomerular Filt Rate > 60; Glucose Random 102 mg/dL (60-115); Potassium 3.8 mmol/L (3.3-5.1); Sodium 134 mmol/L (135-145)
--- NOTE | 2024-04-05 00:29 | ED.ABDPAIN ---
HPI - Abdominal Pain General Chief Complaint: Abdominal Pain Stated Complaint: Constipation, Pain felt when breathing Time Seen by Provider: 04/04/24 23:54 Source: patient Mode of arrival: ambulatory Limitations: no limitations History of Present Illness ED Provider: sharon HPI narrative: Patient's history of chronic constipation take MiraLax which she ran out of it 4 days unable to move any bowels since then no nausea no vomiting history of same in the past no history of blockage Related Data Previous Rx's ?Medication ?Instructions ?Recorded benzonatate 100 mg capsule 100 mg PO BID PRN cough #14 caps 05/04/23 cephalexin 250 mg capsule 250 mg PO Q6H 7 days #28 caps 06/03/23 fluconazole 100 mg tablet 150 mg (1.5 x 100 mg) PO DAILY 1 06/03/23 (Diflucan) day #1 tab metronidazole 0.75 % (37.5 mg/5 1 appful vaginal DAILY 5 days #70 06/03/23 gram) vaginal gel grams cetirizine 10 mg tablet (Zyrtec) 10 mg PO DAILY PRN allergy 09/09/23 symptoms #14 tabs diphenhydramine HCl 25 mg tablet 25 mg PO Q8H PRN itching #14 tabs 09/09/23 (Benadryl Allergy) hydrocortisone 2.5 % topical cream 1 appl SC DAILY PRN itching #30 09/09/23 with perineal applicator grams prednisone 20 mg tablet 40 mg (2 x 20 mg) PO DAILY 5 days 09/09/23 #10 tabs doxycycline hyclate 100 mg tablet 100 mg PO Q12H 14 days #28 tabs 03/23/24 metronidazole 500 mg tablet 500 mg PO BID 10 days #20 tabs 03/23/24 ondansetron 4 mg disintegrating 4 mg PO Q6-8H PRN nausea and 03/23/24 tablet vomiting #14 tabs magnesium hydroxide 400 mg/5 mL 400 mg (5 mL) PO DAILY PRN 04/05/24 oral suspension (Milk of Magnesia) constipation #355 mL Allergies Allergy/AdvReac Type Severity Reaction Status Date / Time acetaminophen [From Tylenol] Allergy Unknown Verified 04/04/24 21:16 Review of Systems Review of Systems Yes all other systems are reviewed and are negative PMFSH Social History Social History Advance Directives: No Advance Directives Information Provided: No Physical Exam ED Vital Signs: Vital Signs - 24 hr 04/04/24 21:14 04/05/24 01:22 Temperature 97.4 F 98.4 F Pulse Rate 80 69 Respiratory Rate 20 16 Blood Pressure 107/73 99/62 Pulse Oximetry 100 98 Oxygen Delivery Method Room Air Room Air BMI result Body Mass Index 18.0 Appearance: Alert. Oriented X3. No acute distress. Eyes: PERRLA, No Nystagmus ENT: Pharynx normal. Oral Mucosa moist Neck: Normal inspection. Neck supple. CVS: Normal heart rate and rhythm. Pulses normal. Respiratory: No respiratory distress. Equal air entry bilateral, no wheezing/rales/rhonchi Abdomen: Soft and nontender. Bowel sounds are present, no mass palpable, no CVA tenderness rectal: Empty rectum no stool Skin: Skin warm and dry. Normal skin color. Normal skin turgor. Extremities: No lower extremity edema. No calf tenderness Neuro: Oriented X 3. No motor deficit. Medical Decision Making Medical Decision Making [facility] Narrative: Patient has constipation but no signs of obstruction passing flatus will discharge patient home advised to continue milk of magnesia/MiraLax Lab Data [facility] Lab Attestation statement: I reviewed the patient's lab results. 04/04/24 21:56 04/04/24 21:56 Labs: Lab Results 04/04/24 Range/Units 21:56 WBC 10.0 (4.8-10.8) X10*3/uL RBC 4.36 (4.20-5.50) X10*6/uL Hgb 13.6 (12.0-16.0) g/dl Hct 39.8 (37.0-47.0) % MCV 91.3 (80.0-98.0) fL MCH 31.2 (27.0-33.0) pg MCHC 34.2 (31.0-35.0) g/dl RDW 12.9 (11.0-16.0) % Plt Count 271 (160-400) X10*3/uL MPV 10.2 (9.4-12.3) fL Immature Gran % (Auto) 0.3 (0.0-0.4) % Neut % (Auto) 78.8 H (45-73) % Lymph % (Auto) 13.4 L (20-40) % [place] % (Auto) 6.7 (2-11) % Eos % (Auto) 0.4 (0-4) % Baso % (Auto) 0.4 (0-2) % Lymph # (Auto) 1.3 (1.2-4.9) X10*3/uL [place] # (Auto) 0.7 (0.1-1.2) X10*3/uL Eos # (Auto) 0.0 (0.0-0.4) X10*3/uL Baso # (Auto) 0.0 (0.0-0.2) X10*3/uL Abs Immat Gran (auto) 0.03 (0.00-0.03) X10*3/uL Absolute Neuts (auto) 7.8 (2.0-8.3) x10*3/uL Absolute Nucleated RBC 0.000 (0.0-0.012) X10*3/uL Nucleated RBC % (auto) 0.0 (0.0-0.2) /100WBC Sodium 134 L (135-145) mmol/L Potassium 3.8 (3.3-5.1) mmol/L Chloride 105 (96-108) mmol/L Carbon Dioxide 23 (22-29) mmol/L Anion Gap 10 L (12-20) BUN 7 L (9-16) mg/dL Creatinine 0.69 (0.5-1.4) mg/dL Estim Creat Clear Calc 99.4 Estimated GFR > 60 Random Glucose 102 (60-115) mg/dL Calcium 10.0 (8.4-10.2) mg/dL Total Bilirubin 0.7 (0.0-1.0) mg/dL AST 21 (5-31) U/L ALT 14 (0-31) U/L Alkaline Phosphatase 52 (39-117) U/L Total Protein 8.0 (6.5-8.0) g/dL Albumin 4.3 (3.5-5.0) g/dL Independent Interpretation I performed an independent interpretation of an: Plain X-Ray Interpretation: XR/XR KUB IMPRESSION: Abnormal dilatation of the small and large bowel, increased compared to 03/23/2024. Indeterminate could be related with ileus or less likely distal bowel obstruction. Further evaluation with CT abdomen/pelvis as clinically warranted. Electronically signed by: Linn Gill MD 04/04/2024 11:04 PM [facility] [place] Radiology Impression Discussion of test interpretation with radiology: I have reviewed the radiologist's reading. Medications Administered Discontinued Medications Generic Name Dose Route Start Last Admin Trade Name Freq PRN Reason Stop Dose Admin Bisacodyl 10 mg 04/05/24 00:25 04/05/24 00:57 Bisacodyl 5 Mg Tablet.Dr PO 04/05/24 00:26 10 mg ONCE ONE Administration Magnesium Hydroxide 30 ml 04/05/24 00:25 04/05/24 00:57 Milk Of Magnesia 30 Ml Oral.Susp PO 04/05/24 00:26 30 ml NOW STA Administration Discharge Plan Discharge Clinical Impression: Constipation Patient Disposition: Home, Self-Care Instructions: Constipation (ED), High Fiber Diet (ED) Additional Instructions: Take MiraLax/milk of magnesia as needed for constipation Drink plenty of fluids have increase fiber in the diet Prescriptions: New magnesium hydroxide [Milk of Magnesia] 400 mg/5 mL suspension 400 mg PO DAILY PRN (Reason: constipation) Qty: 355 0RF No Action benzonatate 100 mg capsule 100 mg PO BID PRN (Reason: cough) Qty: 14 0RF cephalexin 250 mg capsule 250 mg PO Q6H 7 Days Qty: 28 0RF fluconazole [Diflucan] 100 mg tablet 150 mg PO DAILY 1 Days Qty: 1 0RF metronidazole 0.75 % (37.5mg/5 gram) gel 1 appful vaginal DAILY 5 Days Qty: 70 0RF prednisone 20 mg tablet 40 mg PO DAILY 5 Days Qty: 10 0RF cetirizine [Zyrtec] 10 mg tablet 10 mg PO DAILY PRN (Reason: allergy symptoms) Qty: 14 0RF diphenhydramine HCl [Benadryl Allergy] 25 mg tablet 25 mg PO Q8H PRN (Reason: itching) Qty: 14 0RF Rx Instructions: may repeat once in 30-60 minutes if not effective hydrocortisone 2.5 % cream with perineal applicator 1 appl SC DAILY PRN (Reason: itching) Qty: 30 0RF metronidazole 500 mg tablet 500 mg PO BID 10 Days Qty: 20 0RF ondansetron 4 mg tablet,disintegrating 4 mg PO Q6-8H PRN (Reason: nausea and vomiting) Qty: 14 0RF doxycycline hyclate 100 mg tablet 100 mg PO Q12H 14 Days Qty: 28 0RF Print Language: [place]
[2024-04-05] MEDS: Milk of Magnesia 30 ML ORAL.SUSP PO (00:57)
[2024-04-05] MEDS: bisacodyL 5 MG TABLET.DR 10 MG PO (00:57)
[2024-04-05 01:22] VITALS: BP 99/62; PULSE 69; RESP 16; TEMP 36.9; O2SAT 98
[2024-04-05 01:40] VITALS: BP 99/62; PULSE 69; RESP 16; TEMP 36.9; O2SAT 98
== END 2024-04-05 01:57 | disposition home or self-care (01) ==
PROVIDERS: Emergency Provider Internal Medicine
DX: K59.00 Constipation, unspecified (principal); R10.9 Unspecified abdominal pain
CPT/HCPCS: 36415; 74018; 80053; 85025; 99282; 99283

== ENCOUNTER 2024-04-05 18:37 | Emergency (ER) | payer OTHER, SELFPAY | END 2024-04-05 20:35 | disposition left against medical advice (07) | PROVIDERS: Emergency Provider Internal Medicine | DX: K59.00 Constipation, unspecified (principal) ==